=== PATIENT | male | born 1985 | race African-American/Black ===

== ENCOUNTER 2022-08-03 19:34 | Emergency (ER) | payer OTHER ==
[~2022-08-03] VITALS: Ht 170.2 cm; Wt 102.5 kg
[2022-08-03] MEDS ORDERED: MELOXICAM7.5 MG PO (22:11)
[2022-08-03 22:17] VITALS: BP 174/97
== END 2022-08-03 22:17 | disposition home or self-care (01) ==
LOC: FSED 19:45
DX: S83.8X2A Sprain of other specified parts of left knee, initial encounter (principal); X50.1XXA Overexertion from prolonged static or awkward postures, initial encounter; Y93.01 Activity, walking, marching and hiking; Y92.89 Other specified places as the place of occurrence of the external cause
CPT/HCPCS: 99283